=== PATIENT | female | born 1930 | race Hispanic/Latino ===

== ENCOUNTER 2019-02-05 16:11 | Observation (INO) | payer MEDICARE ==
[~2019-02-05] VITALS: Ht 149.9 cm; Wt 49.9 kg
[2019-02-05] MEDS ORDERED: FENTANYL 50 MCG/HR PATCH TOP SCH (16:45)
--- NOTE | 2019-02-05 17:07 | NUR ---
FAMILY VOICING CONCERNS WITH FENTANYL PATCH, STATING "ISN'T THAT THAT ARABELLA ENRIQUEZ, WE JUST SAW A REPORT OVER THAT ON THE , I DON'T THINK THAT'S WHAT MOM NEEDS; SHE'S JUST DEHYDRATED, SHE NEEDS AN IV AND TO BE HYDRATED"; INFORMED DR. RIVAS.
--- NOTE | 2019-02-05 17:11 | NUR ---
DR. RIVAS AT BEDSIDE SPEAKING WITH FAMILY IN REGARDS TO PLAN OF CARE.
[2019-02-05 18:00] LABS: BASOPHILS % 0.1 % (0.0-1.0); HEMATOCRIT 40.9 % (34.2-44.1); HEMOGLOBIN 13.6 g/dL (12.0-16.0); LYMPHOCYTES # (AUTO) 1.6 (1.0-3.2); LYMPHOCYTES % 13.7 % (18.0-39.1); MEAN CORPUSCULAR HEMOGLOBIN 31.1 pg (28-32); MEAN CORPUSCULAR HGB CONC 33.3 g/dL (31-35); MEAN CORPUSCULAR VOLUME 93.4 fL (81-99); MONOCYTES # (AUTO) 0.8 (0.2-0.8); NEUTROPHILS % 78.6 % (38.7-80.0); PLATELET COUNT 296 x10e3/uL (140-360); RED BLOOD COUNT 4.38 x10e6/uL (3.6-5.1); RED CELL DISTRIBUTION WIDTH 13.9 % (11.7-14.4)
[2019-02-05 18:08] LABS: BILIRUBIN,URINE NEGATIVE (NEGATIVE); CLARITY,URINE SL CLOUDY (CLEAR); COLOR,URINE YELLOW (YELLOW); KETONES,URINE NEGATIVE (NEGATIVE); LEUKOCYTE ESTERASE ,URINE NEGATIVE (NEGATIVE); NITRITE,URINE NEGATIVE (NEGATIVE); PROTEIN,URINE DIPSTICK TRACE (NEGATIVE); URINE UROBILINOGEN 0.2 mg/dL (0.2 - 1)
[2019-02-05 18:16] LABS: ALBUMIN 2.5 g/dL (3.5-5.0); ALBUMIN/GLOBULIN RATIO 0.5 (0.8-2.0); ANION GAP 14.2 mmol/L (8-16); CALCIUM 9.9 mg/dL (8.4-10.2); CREATININE, SERUM 1.18 mg/dL (0.57-1.11); POTASSIUM 4.2 mmol/L (3.5-5.1)
[2019-02-05 18:20] LABS: AMORPHOUS SEDIMENT,URINE FEW (FEW); BACTERIA,URINE MODERATE /HPF; EPITHELIAL CELLS,URINE RARE /LPF; HYALINE CASTS 0-1 (0-1)
[2019-02-05] MEDS ORDERED: SODIUM CHLORIDE 0.9% 500ML 500 ML IV ONE (19:00)
[2019-02-05 20:03] VITALS: BP 121/88
== END 2019-02-05 20:15 | disposition home or self-care (01) ==
LOC: ER 16:11 → ERHOLD 17:54
PROVIDERS: ADMIT Internal Medicine; ATTEND Internal Medicine
DX: E86.0 Dehydration (principal); R41.82 Altered mental status, unspecified; R30.0 Dysuria
CPT/HCPCS: 36415; 80053; 81001; 85025; 87086; 99284; G0378; J7040